=== PATIENT | female | born 1965 | race Two or more races ===

== ENCOUNTER 2025-03-04 13:46 | Emergency (ER) | payer MEDICAID, OTHER ==
[~2025-03-04] VITALS: Ht 167.6 cm; Wt 88.9 kg
[2025-03-04 13:48] VITALS: TEMP 98
--- NOTE | 2025-03-04 14:16 | ED.PDOC ---
HPI Comments 64 year old female presents to the ED with a chief complaint of med refill onset today. Patient states she ran out of her BP medication about 1 week ago, Amlodipine. She has been experiencing intermittent headache. BP upon ED arrival was 180/109. She recently moved to this area, does not have PCP. PMHx HTN. Denies fever,chills, chest pain, dizziness, shortness of breath, nausea, vomiting, diarrhea, dysuriua. No other symptoms or modifiyng factors present at this time. Chief Complaint: High Blood Pressure Time Seen by MD: 14:05 Reviewed Notes: Medications, Allergies Allergies: Coded Allergies: NO KNOWN ALLERGIES (Unverified , 03/04/25) Information Source: Patient Mode of Arrival: Ambulatory Severity: Moderate Timing: Days Duration: Since onset Prehospital treatment: None Onset: At Rest Cardiac Risk Factors: HTN PE Risk Factors: None History of: None Modifying Factors: Nothing Associated Signs and Symptoms: Other (headache) Past Medical History PAST MEDICAL HISTORY: HTN Surgical History: Denies all surgeries MERCHANDISE SUPERVISOR History: No Pertinent MERCHANDISE SUPERVISOR History Family History Family History: Reviewed,noncontributory to illness, No family hx of Cancer, No family hx of DM, No family hx of Heart sabino, No family hx of HTN, No family hx ofKidney sabino, No family hx of Liver sabino, No family hx of Lung sabino, No family hx of Stroke Social History Smoker: Non-Smoker Alcohol: Denies ETOH Use Drugs: Denies Drug Use Lives In: Home Constitutional: denies: chills, diaphoresis, fatigue, fever, malaise, sweats, weakness, others EENTM: denies: blurred vision, double vision, ear bleeding, ear discharge, ear drainage, ear pain, ear ringing, eye pain, eye redness, hearing loss, mouth pa in, mouth swelling, nasal discharge, nose bleeding, nose congestion, nose pain, photophobia, tearing, throat pain, throat swelling, voice changes, others Respiratory: denies: cough, hemoptysis, orthopnea, SOB at rest, shortness of breath, SOB with excertion, stridor, wheezing, others Cardiovascular: reports: others (hypertension); denies: chest pain, dizzy spells, diaphoresis, Dyspnea on exertion, edema, irregular heart beat, left arm pain, lightheadedness, palpitations, PND, syncope Gastrointestinal: denies: abdomen distended, abdominal pain, blood streaked bowels, constipated, diarrhea, dysphagia, difficulty swallowing, hematemesis, melena, nausea, poor appetite, poor fluid intake, rectal bleeding, rectal pain, vomiting, others Genitourinary: denies: abnormal vagina bleeding, burning, dyspareunia, dysuria, flank pain, frequency, hematuria, incontinence, pain, , vagina discharge, urgency, others Neurological: reports: headache; denies: dizziness, fainting, left sided numbness, left sided weakness, numbness, paresthesia, pre-existing deficit, right sided numbness, right sided weakness, seizure, speech problems, tingling, tremors, weakness, others Musculoskeletal: denies: back pain, gout, joint pain, joint swelling, muscle pain, muscle stiffness, neck pain, others Integumetry: denies: bruises, change in color, change in hair/nails, dryness, laceration, lesions, lumps, rash, wounds, others Allergic/Immunocompromised: denies: Difficulty Healing, Frequent Infections, Hives, Itching, others Hematologic/Lymphatic: denies: anemia, blood clots, easy bleeding, easy bruising, swollen glands, others Endocrine: denies: excessive hunger, excessive sweating, excessive thirst, excessive urination, flushing, intolerance to cold, intolerance to heat, unexplained weight gain, unexplained weight loss, others Psychiatric: denies: anxiety, bipolar disorder, depression, hopeless, panic disorder, schizophrenia, sleepless, suicidal, others All Other Systems: Reviewed and Negative Physical Exam General Appearance: No Apparent Distress, Normal HEENT: Normal ENT Inspection, Pharynx Normal, TMs Normal Neck: Full Range of Motion, Non-Tender, Normal, Normal Inspection Respiratory: Chest Non-Tender, Lungs Clear, No Accessory Muscle Use, No Respiratory Distress, Normal Breath Sounds Cardiovascular: No Edema, No JVD, No Murmur, No Gallop, Normal Peripheral Pulses, Regular Rate/Rhythm Breast Exam: Deferred Gastrointestinal: No Organomegaly, Non Tender, No Pulsatile Mass, Normal Bowel Sounds, Soft Genitalia: Deferred Pelvic: Deferred Rectal: Deferred Extremities: No calf tenderness, Normal capillary refill, Normal inspection, Normal range of motion, Non-tender, No pedal edema Musculoskeletal : Apperance: Normal Neurologic: Alert, music historian II-XII nml as Tested, No Motor Deficits, Normal Affect, Normal Mood, No Sensory Deficits Cerebellar Function: Normal Reflexes: Normal Skin: Dry, Normal Color, Warm Lymphatic: No Adenopathy Was a procedure done? Was a procedure done?: No CP Differential Dx Differential Diagnosis: MAT, PAC's Differential Diagnosis: HTN Essential, Medical NonCompliance Differential Diagnosis: Myocardial Infarction X-Ray, Labs, Meds, VS Vital Signs Date Time Temp Pulse Resp B/P (MAP) Pulse Ox O2 Delivery O2 Flow Rate FiO2 03/04/25 15:56 58 18 188/108 (134) 98 03/04/25 15:56 58 18 98 Room Air 03/04/25 14:15 182/76 03/04/25 13:48 98.0 60 18 180/109 97 98.0 Current Medications Medications (Trade) Dose Ordered Sig/Igor Route Start Time Stop Time Status Last Admin Amlodipine Besylate (Norvasc Tablet) 10 mg ONCE ONCE PO 03/04/25 14:15 03/04/25 14:16 DC 03/04/25 14:15 Time of 1ST Reevaluation: 14:35 Reevaluation 1ST: Unchanged Patient Education/Counseling: Diagnosis, Treatment, Prognosis Family Education/Counseling: Diagnosis, Treatment, Prognosis SEPSIS Sepsis Screen Date sepsis recognized/suspect: Mar 04, 2025 Time Sepsis recognized/suspect: 1347 Recent Procedure: No On Antibiotic Therapy: No Respiratory Rate >20: No Heart Rate >90: No Temp<36 C (96.8 F) or >38.3 C: No SBP <90 or MAP <65 mmHG: No New Acute Mental Status Change: No Is the patient on CPAP, BIPAP,: No Vital Signs Date Time Temp Pulse Resp B/P (MAP) Pulse Ox O2 Delivery O2 Flow Rate FiO2 03/04/25 15:56 58 18 188/108 (134) 98 03/04/25 15:56 58 18 98 Room Air 03/04/25 14:15 182/76 03/04/25 13:48 98.0 60 18 180/109 97 98.0 Medications Medications Dose Ordered Sig/Igor Route Start Time Stop Time Status Last Admin Dose Admin Amlodipine Besylate 10 mg ONCE ONCE PO 03/04/25 14:15 03/04/25 14:16 DC 03/04/25 14:15 Departure 1 Departure Time of Disposition: 16:57 (Patient with hypertension and medication noncompliance. We will discharge patient home with medications) Impression: Primary Impression: Essential hypertension Disposition: HOME / SELF CARE / HOMELESS Condition: Stable Additional Instructions: Your amlodipine was refilled today. It is important to follow up with the regular doctor within one week to ensure that you are doing better. e-Prescriptions Amlodipine Besylate (Amlodipine Besylate) 10 Mg Tab 1 TAB PO DAILY for 30 Days, #30 TAB 5 Refills Prov: BERE FIGUEROA MD 03/04/25 Discharged With: Self Critical Care Note Critical Care Time?: No Stability Stability form required: No Heart Score Heart Score: Heart Score Response (Comments) Value History Slightly Suspicious 0 EKG Normal 0 Age 45-64 1 Risk Factors No known risk factors 0 Troponin Normal limit 0 Total 1 I personally scribed for BERE FIGUEROA MD ([email or web address]) on 03/04/25 at 14:16. Electronically submitted by Camille Kraus ([email or web address]). BERE FIGUEROA MD Mar 04, 2025 14:16
[2025-03-04 15:56] VITALS: BP 188/108; PULSE 58; RESP 18; O2SAT 98
[2025-03-04] MEDS ORDERED: AMLO1TAB23 PO (16:58)
== END 2025-03-04 17:25 | disposition home or self-care (01) ==
LOC: ER 13:46 → EDBD 13:46 → ER 17:25
DX: I10 Essential (primary) hypertension (principal); Z76.0 Encounter for issue of repeat prescription

== ENCOUNTER 2025-06-03 06:15 | Emergency (ER) | payer MEDICAID ==
[~2025-06-03] VITALS: Ht 170.2 cm; Wt 81.8 kg
[~2025-06-03 06:15] MED LIST: AMLO1TAB23 PO
--- NOTE | 2025-06-03 06:48 | ED.PDOC ---
General HPI Comments This is a 59 year old female presenting to the ED with chief complaint of flank pain. Patient reports that she has been experiencing right sided flank pain over the past few days, worsening this morning and becoming a 10/10 in pain. Patient relays that her pain is now radiating to her RLQ. Patient denies any abdominal pain, N/V/D, dysuria, hematuria, or fever at this time. Chief Complaint: Flank Pain Time Seen by MD: 06:46 Reviewed notes: Nurses Notes, Medications, Allergies Allergies: Coded Allergies: NO KNOWN ALLERGIES (Unverified , 03/04/25) Home Meds Active Scripts Ibuprofen Micronized (MOTRIN TABLET) 600 Mg Tb, 600 MG PO TID PRN for 3 Days, #9 TAB *Black box warning-NSAIDS can increase risk of GA & hypertension, GI irritation, ulceration, bleed, perferation. Do not use post cardiac surgery. Use short duration/lowest effective dose. Prov:YULIANA NETTLES MD 06/03/25 Nitrofurantoin Monohydrate Mac (Macrobid) 100 Mg Cap, 100 MG PO BID for 7 Days, #14 CAP Prov:UYLIANA NETTLES MD 06/03/25 Amlodipine Besylate (Amlodipine Besylate) 10 Mg Tab, 1 TAB PO DAILY for 30 Days, #30 TAB 5 Refills Prov:BERE FIGUEROA MD 03/04/25 Information Source: Patient Mode of Arrival: Ambulatory Severity: Moderate Timing: Days Duration: Since onset Prehospital treatment: None Onset: Spontaneous Symptoms: None History of: None Location: (R) Flank Modifying factors: None associated signs and symptoms: Flank Pain Past Medical History PAST MEDICAL HISTORY: HTN Surgical History: Denies all surgeries PLACEMENT SECRETARY History: No Pertinent PLACEMENT SECRETARY History Family History Family History: Reviewed,noncontributory to illness, No family hx of Cancer, No family hx of DM, No family hx of Heart sabino, No family hx of HTN, No family hx ofKidney sabino, No family hx of Liver sabino, No family hx of Lung sabino, No family hx of Stroke Social History Smoker: Non-Smoker Alcohol: Denies ETOH Use Drugs: Denies Drug Use Lives In: Home Constitutional: denies: chills, diaphoresis, fatigue, fever, malaise, sweats, w eakness, others EENTM: denies: blurred vision, double vision, ear bleeding, ear discharge, ear drainage, ear pain, ear ringing, eye pain, eye redness, hearing loss, mouth pain, mouth swelling, nasal discharge, nose bleeding, nose congestion, nose pain, photophobia, tearing, throat pain, throat swelling, voice changes, others Respiratory: denies: cough, hemoptysis, orthopnea, SOB at rest, shortness of breath, SOB with excertion, stridor, wheezing, others Cardiovascular: denies: chest pain, dizzy spells, diaphoresis, Dyspnea on exertion, edema, irregular heart beat, left arm pain, lightheadedness, palpitations, PND, syncope, others Gastrointestinal: denies: abdomen distended, abdominal pain, blood streaked bowels, constipated, diarrhea, dysphagia, difficulty swallowing, hematemesis, melena, nausea, poor appetite, poor fluid intake, rectal bleeding, rectal pain, vomiting, others Genitourinary: reports: flank pain; denies: abnormal vagina bleeding, burning, dyspareunia, dysuria, frequency, hematuria, incontinence, pain, , vagina discharge, urgency, others Neurological: denies: dizziness, fainting, headache, left sided numbness, left sided weakness, numbness, paresthesia, pre-existing deficit, right sided numbness, right sided weakness, seizure, speech problems, tingling, tremors, weakness, others Musculoskeletal: denies: back pain, gout, joint pain, joint swelling, muscle pain, muscle stiffness, neck pain, others Integumetry: denies: bruises, change in color, change in hair/nails, dryness, laceration, lesions, lumps, rash, wounds, others Allergic/Immunocompromised: denies: Difficulty Healing, Frequent Infections, Hives, Itching, others Hematologic/Lymphatic: denies: anemia, blood clots, easy bleeding, easy bruising, swollen glands, others Endocrine: denies: excessive hunger, excessive sweating, excessive thirst, excessive urination, flushing, intolerance to cold, intolerance to heat, unexplained weight gain, unexplained weight loss, others Psychiatric: denies: anxiety, bipolar disorder, depression, hopeless, panic disorder, schizophrenia, sleepless, suicidal, others All Other Systems: Reviewed and Negative Physical Exam General Appearance: Moderate Distress, Normal HEENT: Normal ENT Inspection, Pharynx Normal, TMs Normal Neck: Full Range of Motion, Non-Tender, Normal, Normal Inspection Respiratory: Chest Non-Tender, Lungs Clear, No Accessory Muscle Use, No Respir atory Distress, Normal Breath Sounds Cardiovascular: No Edema, No JVD, No Murmur, No Gallop, Normal Peripheral Pulses, Regular Rate/Rhythm Breast Exam: Deferred Gastrointestinal: No Organomegaly, Non Tender, No Pulsatile Mass, Normal Bowel Sounds, Soft Genitalia: Deferred Pelvic: Deferred Rectal: Deferred Extremities: No calf tenderness, Normal capillary refill, Normal inspection, Normal range of motion, Non-tender, No pedal edema Musculoskeletal : Apperance: Normal Neurologic: Alert, magento web developer II-XII nml as Tested, No Motor Deficits, Normal Affect, Normal Mood, No Sensory Deficits Cerebellar Function: Normal Reflexes: Normal Skin: Dry, Normal Color, Warm Peripheral Pulses: 3+ Radial (R), 3+ Radial (L) Lymphatic: No Adenopathy Was a procedure done? Was a procedure done?: No Differential Diagnosis Kidney stone (Female): Musculoskeletal pain, Urinary obstruction, Urolithiasis X-Ray, Labs, Meds, VS Vital Signs Date Time Temp Pulse Resp B/P (MAP) Pulse Ox O2 Delivery O2 Flow Rate FiO2 06/03/25 09:56 65 12 112/65 (81) 96 06/03/25 09:27 55 18 167/77 06/03/25 08:55 68 18 205/100 (135) 100 06/03/25 08:10 56 16 98 Room Air* 0 21 06/03/25 08:09 98.9 56 17 191/89 (123) 98 98.9 06/03/25 08:09 56 17 98 Room Air 06/03/25 08:06 191/89 06/03/25 06:17 97.6 61 20 182/112 99 97.6 Lab Test 06/03/25 07:27 06/03/25 06:52 Range/Units Urine Color Light-yellow Yellow Urine Clarity Clear Clear Urine pH 5.5 5.0-9.0 Urine Specific Vader 1.027 1.001-1.035 Urine Protein Negative Negative Urine Ketones Negative Negative Urine Blood 1+ H Negative /uL Urine Nitrite Negative Negative Urine Bilirubin Negative Negative Urine Urobilinogen Normal Negative mg/dL Urine Leukocyte Esterase 1+ Negative /uL Urine RBC 3 0 - 4 /hpf Urine Microscopic WBC 2 0-5 /HPF Urine Squamous Epithelial Cells Few <5 /hpf Urine Bacteria Few H None Seen /hpf Urine Mucus Few None Seen Urine Glucose Normal Normal mg/dL White Blood Count 6.5 4.4-10.8 10^3/uL Red Blood Count 4.90 4.0-5.20 10^6/uL Hemoglobin 14.5 12.2-16.2 g/dL Hematocrit 43.8 36.0-46.0 % Mean Corpuscular Volume 89.3 80.0-100.0 fL Mean Corpuscular Hemoglobin 29.6 28.0-32.0 pg Mean Corpuscular Hemoglobin Concent 33.2 32.0-36.0 g/dL Red Cell Distribution Width 15.3 H 11.8-14.3 % Platelet Count 171 140-450 10^3/uL Mean Platelet Volume 9.1 6.9-10.8 fL Neutrophils (%) (Auto) 50.4 37.0-80.0 % Lymphocytes (%) (Auto) 38.1 10.0-50.0 % Monocytes (%) (Auto) 7.7 0.0-12.0 % Eosinophils (%) (Auto) 3.0 0.0-7.0 % Basophils (%) (Auto) 0.8 0.0-2.0 % Neutrophils # (Auto) 3.3 1.6-8.6 10 ^3/uL Lymphocytes # (Auto) 2.5 0.4-5.4 10 ^3/uL Monocytes # (Auto) 0.5 0-1.3 10 ^3/uL Eosinophils # (Auto) 0.2 0-0.8 10 ^3/uL Basophils # (Auto) 0.1 0-0.2 10 ^3/uL Nucleated Red Blood Cells 0.1 % Sodium Level 142 136-145 mmol/L Potassium Level 3.7 3.5-5.1 mmol/L Chloride Level 110 H 98-107 mmol/L Carbon Dioxide Level 25 20-31 mmol/L Anion Gap 7 5-15 Blood Urea Nitrogen 16 9-23 mg/dL Creatinine 0.83 0.550-1.02 mg/dL Glomerular Filtration Rate Calc 82 >90 mL/min BUN/Creatinine Ratio 19.3 10.0-20.0 Serum Glucose 103 74-106 mg/dL Calcium Level 9.8 8.7-10.4 mg/dL Current Medications Medications (Trade) Dose Ordered Sig/Igor Route Start Time Stop Time Status Last Admin Ondansetron HCl (Zofran) 4 mg ONCE ONCE IV 06/03/25 06:45 06/03/25 06:46 DC 06/03/25 07:58 Sodium Chloride 1,000 ml @ 1,000 mls/hr Q1H ONCE IVB 06/03/25 06:45 06/03/25 07:44 DC 06/03/25 08:04 Ketorolac Tromethamine (Toradol Injection) 30 mg ONCE ONCE IV 06/03/25 06:45 06/03/25 06:46 DC 06/03/25 07:57 Clonidine HCl (Catapres Tablet) 0.2 mg ONCE ONCE PO 06/03/25 07:45 06/03/25 07:46 DC 06/03/25 08:06 Tamsulosin HCl (Flomax) 0.4 mg ONCE ONCE PO 06/03/25 09:15 06/03/25 09:16 DC 06/03/25 09:37 Morphine Sulfate 4 mg ONCE ONCE IV 06/03/25 09:15 06/03/25 09:16 DC 06/03/25 09:27 Patient alert. Came in because of flank pain. Vitals stable. Answering questions. Blood pressure elevated. Was given pain medication. WBC within normal limits. Hemoglobin within normal limits. Explained to the patient. Continue monitoring. Time of 1ST Reevaluation: 07:46 Reevaluation 1ST: Unchanged Patient Education/Counseling: Diagnosis, Treatment Family Education/Counseling: No Family Present SEPSIS Sepsis Screen Date sepsis recognized/suspect: Jun 03, 2025 Time Sepsis recognized/suspect: 620 Recent Procedure: No On Antibiotic Therapy: No Respiratory Rate >20: No Heart Rate >90: No Temp<36 C (96.8 F) or >38.3 C: No SBP <90 or MAP <65 mmHG: No New Acute Mental Status Change: No Is the patient on CPAP, BIPAP,: No Vital Signs Date Time Temp Pulse Resp B/P (MAP) Pulse Ox O2 Delivery O2 Flow Rate FiO2 06/03/25 09:56 65 12 112/65 (81) 96 06/03/25 09:27 55 18 167/77 06/03/25 08:55 68 18 205/100 (135) 100 12/22/25 08:10 56 16 98 Room Air* 0 21 06/03/25 08:09 98.9 56 17 191/89 (123) 98 98.9 06/03/25 08:09 56 17 98 Room Air 06/03/25 08:06 191/89 06/03/25 06:17 97.6 61 20 182/112 99 97.6 Laboratory Tests Test 06/03/25 06:52 White Blood Count 6.5 10^3/uL (4.4-10.8) Medications Medications Dose Ordered Sig/Igor Route Start Time Stop Time Status Last Admin Dose Admin Clonidine HCl 0.2 mg ONCE ONCE PO 06/03/25 07:45 06/03/25 07:46 DC 06/03/25 08:06 Ketorolac Tromethamine 30 mg ONCE ONCE IV 06/03/25 06:45 06/03/25 06:46 DC 06/03/25 07:57 Morphine Sulfate 4 mg ONCE ONCE IV 06/03/25 09:15 06/03/25 09:16 DC 06/03/25 09:27 Ondansetron HCl 4 mg ONCE ONCE IV 06/03/25 06:45 06/03/25 06:46 DC 06/03/25 07:58 Sodium Chloride 1,000 ml @ 1,000 mls/hr Q1H ONCE IVB 06/03/25 06:45 06/03/25 07:44 DC 06/03/25 08:04 Tamsulosin HCl 0.4 mg ONCE ONCE PO 06/03/25 09:15 06/03/25 09:16 DC 06/03/25 09:37 Departure 1 Departure Time of Disposition: 08:01 Impression: Primary Impression: Hypertensive urgency Additional Impression: UTI (urinary tract infection) Qualified Codes: N30.01 - Acute cystitis with hematuria Disposition: 01 HOME / SELF CARE / HOMELESS Condition: Good e-Prescriptions Clonidine Hydrochloride (Clonidine Hcl) 0.1 Mg Tab 1 TAB PO QPM for 10 Days, #10 TAB 2 Refills Prov: YULINAA NETTLES MD 06/03/25 Losartan Potassium (Losartan Potassium) 50 Mg Tab 1 TAB PO DAILY for 20 Days, #20 TAB 5 Refills Prov: YULIANA NETTLES MD 06/03/25 Ibuprofen Micronized (MOTRIN TABLET) 600 Mg Tb 600 MG PO TID PRN for 3 Days, #9 TAB *Black box warning-NSAIDS can increase risk of GA & hypertension, GI irritation, ulceration, bleed, perferation. Do not use post cardiac surgery. Use short duration/lowest effective dose. Prov: YULIANA NETTLES MD 06/03/25 Nitrofurantoin Monohydrate Mac (Macrobid) 100 Mg Cap 100 MG PO BID for 7 Days, #14 CAP Prov: YULIANA NETTLES MD 06/03/25 Discharged With: Self Critical Care Note Critical Care Time?: No Stability Stability form required: No Heart Score Heart Score: Heart Score Response (Comments) Value History N/A 0 EKG N/A 0 Age N/A 0 Risk Factors N/A 0 Troponin N/A 0 Total 0 I personally scribed for YULIANA NETTLES MD ([email or web address]) on 06/03/25 at 06:48. Electronically submitted by Reuben Palma ([email or web address]). YULIANA NETTLES MD Jun 03, 2025 06:48
[2025-06-03 07:15] LABS: Hematocrit 43.8 % (36.0-46.0); Hemoglobin 14.5 g/dL (12.2-16.2); Mean Corpuscular Hemoglobin 29.6 pg (28.0-32.0); Mean Corpuscular Volume 89.3 fL (80.0-100.0); Nucleated Red Blood Cells % 0.1 %
[2025-06-03 07:19] LABS: Potassium 3.7 mmol/L (3.5-5.1); Sodium 142 mmol/L (136-145)
[2025-06-03 07:20] LABS: Anion Gap 7 (5-15); Carbon Dioxide 25 mmol/L (20-31)
[2025-06-03 07:21] LABS: Calcium 9.8 mg/dL (8.7-10.4)
[2025-06-03 07:25] LABS: BUN/Creatinine Ratio 19.3 (10.0-20.0); Blood Urea Nitrogen 16 mg/dL (9-23); Glucose 103 mg/dL (74-106)
[2025-06-03 07:28] LABS: Chloride 110 mmol/L (98-107)
[2025-06-03] MEDS: KETOROLAC TROMETH 30 MG/ML 1ML VIAL IV ONE (07:57)
[2025-06-03] MEDS: ONDANSETRON HCL 4 MG/2 ML VIAL IV ONE (07:58)
[2025-06-03 08:00] LABS: Urine Protein, UAD Negative (Negative)
[2025-06-03] MEDS: SODIUM CHLORIDE 0.9% 1,000 ML IVB ONE (08:04)
[2025-06-03 08:09] VITALS: TEMP 98.9
[2025-06-03 08:10] VITALS: PULSE 56; RESP 16; O2SAT 98
[2025-06-03] MEDS ORDERED: NITR-87 PO (09:11)
[2025-06-03] MEDS ORDERED: IBU600T PO (09:11)
[2025-06-03] MEDS: MORPHINE SULFATE 4 MG/ML SYR/VIAL IV ONE (09:27)
[2025-06-03] MEDS: TAMSULOSIN HYDROCHLORIDE 0.4 MG CAP PO ONE (09:37)
[2025-06-03 09:56] VITALS: O2SAT 96
[2025-06-03] MEDS ORDERED: CLON0.1T PO (10:12)
[2025-06-03] MEDS ORDERED: LOSA-534 PO (10:12)
[2025-06-03] MEDS: LORazepam 2MG/ML-1ML VIAL IV ONE (10:16)
[2025-06-03 10:49] VITALS: BP 156/96; PULSE 89; RESP 17
== END 2025-06-03 10:35 | disposition home or self-care (01) ==
LOC: ER 06:15
DX: I16.0 Hypertensive urgency (principal); N39.0 Urinary tract infection, site not specified; I10 Essential (primary) hypertension; Z79.899 Other long term (current) drug therapy
CPT/HCPCS: 36415; 80048; 81001; 85025; 96361; 96374; 96375; 99284; J1885; J2270; J2405; J7030